=== PATIENT | female | born 2000 | race Caucasian/White ===

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

== ENCOUNTER 2018-08-10 07:20 | Inpatient (IN) | payer OTHER ==
[~2018-08-10] VITALS: Ht 160 cm; Wt 97.2 kg
[~2018-08-10 07:20] MED LIST: IBUP-1542 PO
[2018-08-10] MEDS ORDERED: ONDANSETRON 4 MG INJ IV STA (07:59)
[2018-08-10] MEDS ORDERED: SOD CHLORIDE 0.9% 1,000 ML IV STA (07:59)
[2018-08-10] MEDS ORDERED: morphine 2 MG INJ IV STA (07:59)
--- NOTE | 2018-08-10 08:21 | ERD ---
ER Documentation Chief Complaint Chief Complaint pt is bib self with c/o abd pain starting last night HPI This is a 17-year-old female with a nonsignificant past medical history presents ED with complaints of upper abdominal pain that started 1 week ago. Patient states that the pain comes and goes but is becoming more consistent over the past day. Patient describes the pain as a burning sensation and rates it at a 10 out of 10 pain. Pain rates to the back. Admits to multiple episodes of nonbilious nonbloody vomiting. Admits to decreased appetite. Pain is alleviated by drinking warm tea. Pain is aggravated by eating. Patient states that she has had similar pain off and on throughout the past year. Patient states that she was seen here 1 year ago for the same pain was diagnosed with cholecystitis and was kept in the hospital for 4 days but never had her gallbladder removed. Has not followed up with GI following dc from hospital one year ago. denies fever, chills, hematochezia, hemoptysis, hematemesis, diarrhe a, constipation, chest pain, shortness of breath, trouble breathing, dysuria, hematuria, vaginal pain, vaginal discharge and all other symptoms. ROS All systems reviewed and are negative except as per history of present illness. Medications Home Meds Active Scripts Ibuprofen* (Ibuprofen*) 600 Mg Tablet, 600 MG PO Q6H PRN for MODERATE PAIN LEVEL 4-6 for 1 Day, #20 TAB otc Prov:RAÚL QUINTEROS MD 09/09/17 Allergies Allergies: Coded Allergies: No Known Allergy (Unverified , 09/07/17) VERIFIED BY RN PMhx/Soc Hx Neurological Disorder: No Hx Respiratory Disorders: No Hx Cardiac Disorders: No Hx Psychiatric Problems: No Hx Alcohol Use: No Hx Substance Use: Yes (MARIJUANA) Hx Tobacco Use: No Smoking Status: Current some day smoker Physical Exam Vitals Vital Signs Date Temp Pulse Resp B/P (MAP) Pulse Ox O2 O2 Flow FiO2 Time Delivery Rate 08/10/18 98.3 94 18 147/65 98 07:23 (92) Physical Exam Physical Exam Vitals signs: Reviewed by me. General: Well developed, well nourished, in mild distress. Patient is awake and alert. Resting peacefully on stretcher Head: Normocephalic, atraumatic. Eyes: Normal conjunctiva, Pupils PERRLA, EOM intact grossly ENT: Pharynx is clear, Moist mucous membranes, external ears, nose and mouth normal Neck: Supple, no masses, lymphadenopathy or JVD Respiratory: Clear to auscultation bilaterally with no wheezing, rhonchi, rales, no distress Cardiovascular: RRR, no murmurs, rubs, or gallops Abdominal: Soft, nondistended, no peritoneal signs, no rigidity, no surgical abdomen, bowel sounds present all 4 quadrants, mild tenderness to palpation epigastric and right upper quadrant region, , nontender palpation all other areas, McBurney's point nontender, no rebound tenderness : Deferred MSK: No edema, no unilateral swelling, 5/5 strength Back: No midline tenderness. No flank tenderness Neurologic: Alert and oriented, moving all extremities, normal speech, no focal weakness, no cerebellar signs. Normal mentation Skin: warm and dry, No rash Psych: Normal mood Result Diagram: 08/10/1892008/10/18 0921 Results 24 hrs Laboratory Tests Test 08/10/18 08:13 08/10/18 08:20 08/10/18 09:21 POC Beta HCG, Qualitative NEGATIVE Urine Color YELLOW Urine Clarity SLIGHTLY CLOUDY Urine pH 8.0 Urine Specific [place] 1.023 Urine Ketones NEGATIVE mg/dL Urine Nitrite NEGATIVE mg/dL Urine Bilirubin NEGATIVE mg/dL Urine Urobilinogen NEGATIVE mg/dL Urine Leukocyte Esterase 1+ Bryanna/ul Urine Microscopic RBC 4 /HPF Urine Microscopic WBC 24 /HPF Urine Squamous Epithelial Cells FEW /HPF Urine Bacteria FEW /HPF Urine Mucus FEW /HPF Urine Hemoglobin NEGATIVE mg/dL Urine Glucose NEGATIVE mg/dL Urine Total Protein 1+ mg/dl White Blood Count 13.1 10^3/ul Red Blood Count 4.83 10^6/ul Hemoglobin 10.5 g/dl Hematocrit 35.0 % Mean Corpuscular Volume 72.5 fl Mean Corpuscular Hemoglobin 21.7 pg Mean Corpuscular 30.0 g/dl Hemoglobin Concent Red Cell Distribution Width 15.8 % Platelet Count 442 10^3/UL Mean Platelet Volume 10.9 fl Immature Granulocytes % 0.500 % Neutrophils % 90.2 % Lymphocytes % 7.0 % Monocytes % 2.2 % Eosinophils % 0.0 % Basophils % 0.1 % Nucleated Red Blood Cells % 0.0 /100WBC Immature Granulocytes # 0.060 10^3/ul Neutrophils # 11.8 10^3/ul Lymphocytes # 0.9 10^3/ul Monocytes # 0.3 10^3/ul Eosinophils # 0.0 10^3/ul Basophils # 0.0 10^3/ul Nucleated Red Blood Cells # 0.0 10^3/ul Sodium Level 139 mmol/L Potassium Level 4.4 mmol/L Chloride Level 102 mmol/L Carbon Dioxide Level 26 mmol/L Anion Gap 11 Blood Urea Nitrogen 9 mg/dl Creatinine 0.54 mg/dl Est Glomerular Filtrat > 60 mL/min Rate mL/min Glucose Level 129 mg/dl Calcium Level 9.9 mg/dl Total Bilirubin 0.5 mg/dl Direct Bilirubin 0.00 mg/dl Indirect Bilirubin 0.5 mg/dl Aspartate Amino 22 IU/L Transf (AST/SGOT) Alanine 7 IU/L Aminotransferase (ALT/SGPT) Alkaline Phosphatase 115 IU/L Total Protein 9.5 g/dl Albumin 4.8 g/dl Globulin 4.70 g/dl Albumin/Globulin Ratio 1.02 Lipase 34 U/L Current Medications Medications Dose Sig/June Start Time Status Last (Trade) Ordered Route PRN Stop Time Admin Dose Reason Admin Sodium 1,000 ml @ Q1H STAT 08/10/18 DC 08/10/18 Chloride 1,000 mls/hr IV 07:59 09:08 08/10/18 08:58 Morphine 4 mg ONCE STAT 08/10/18 DC 08/10/18 Sulfate IV 07:59 09:08 (morphine) 08/10/18 08:00 Ondansetron 4 mg ONCE STAT 08/10/18 DC 08/10/18 HCl (Zofran IV 07:59 09:08 Inj) 08/10/18 08:00 Piperacillin 100 ml @ ONCE ONCE 08/10/18 DC 08/10/18 Sod/ 200 mls/hr IVPB 09:30 09:55 Tazobactam 08/10/18 09:59 Sod Ondansetron 4 mg BRIDGE ORDER 08/10/18 HCl (Zofran PRN IV 10:00 Inj) NAUSEA/VOMITI 08/11/18 09:59 NG 650 mg ER BRIDGE 08/10/18 Acetaminophen PRN PO 10:00 (Tylenol .MILD PAIN 08/11/18 09:59 Tab) 1-3 OR TEMP Procedures/MDM EKG, MONITORS, & DIAGNOSTIC IMAGING: [facility] [address] [address] Radiology Main Line: [phone] DIAGNOSTIC IMAGING REPORT Patient: JUNIOR GAUTHIER : 2000 Age: 17 Sex: F MR #: [id number] DOS: 08/10/18 0759 Ordering MD: MIA AGUIAR PA-C Location: [facility] Room/Bed: PROCEDURE: US Abdomen. CLINICAL INDICATION: Right upper quadrant abdominal pain TECHNIQUE: Dodd scale and color Doppler imaging of the right upper quadrant COMPARISON: MR 09/08/2017 FINDINGS: The liver is homogeneous in echotexture and no focal liver lesions are seen. Hepatic span measured at 15.9 cm, within normal limits. There is appropriately directed flow within the main portal vein The gallbladder is again distended, there is again a stone present in the gallbladder neck, where it using a mobile, the size of the stone measures 2.2 cm on image 38. Gallbladder wall thickness is upper limits of normal at 3.0 mm. No pericholecystic fluid. Positive sonographic Vogel's sign was reported. No intra or extrahepatic biliary dilatation is seen. The common bile duct measures 3.4 mm in maximal dimension. The visualized pancreas is uniform; the proximal and distal pancreas are partially obscured by upper abdominal bowel gas. The right kidney measures 9.7 cm. No hydronephrosis or renal calculi are seen. No ascites is seen. IMPRESSION: Cholelithiasis with immobile large 2.2 cm stone lodged within the gallbladder neck. The gallbladder is distended with borderline wall thickening (3 mm) and positive sonographic Vogel's sign suspect for the presence of acute cholecystitis. No biliary ductal dilatation. Results were called to the ordering clinician Mia Aguiar at time of dictation 0902 hours. RPTAT: [facility]SAF Physician Kristina Date Time Electronically viewed and signed by Physician Kristina on 08/10/2018 09:03 RF/ CC: MIA AGUIAR PA-C [id number] LAB INTERPRETATION: CBC remarkable for an elevated white blood cell count of 13.1, hemoglobin 10.5, hematocrit 35, Chemistry shows no evidence of significant electrolyte abnormalities or renal insufficiency Liver function test shows no evidence of acute biliary or hepatic dysfunction Urine negative Lipase shows no evidence of acute pancreatitis Urinalysis remarkable for 1+ leukocyte esterase, 24 WBC, ER COURSE: The patient was given IV normal saline, morphine, Zofran. The medication was well tolerated and the patient reports improvement in symptoms. The patient was stable throughout ED course. I kept the patient and/or family informed of laboratory and diagnostic imaging results throughout the emergency room course. The patient was promptly evaluated and a treatment plan was devised based on H&P and other data. This plan was discussed with the patient who agreed and had no further questions or concerns prior to discharge. MEDICAL DECISION MAKING: This is a 17-year-old female presents ED with complaints of upper abdominal pain that started last night. Ultrasound of the gallbladder shows cholelithiasis with a stone lodged in the gallbladder wall neck the gallbladder is also distended with a positive sonographic Vogel sign. This is likely an acute cholecystitis. Patient was also admitted to the hospital 1 year ago for similar symptoms and was diagnosed with acute cholecystitis but did not have her gallbladder removed at this time. Patient will be admitted to hospital today for for treatment of cholecystitis. Discussed findings and my overseeing physician Dr. Harden,who has evaluated patient at bedside, and will be facilitating admission of patient in the hospital Disclaimer: Inadvertent spelling and grammatical errors are likely due to EHR/dictation software use and do not reflect on the overall quality of patient care. Also, please note that the electronic time recorded on this note does not necessarily reflect the actual time of the patient encounter. 0935: Attending note Patient was seen independently alongside the PA. Briefly, this is a 17-year-old that began having right upper quadrant abdominal pain last night consistent with her previous cholecystitis. Diagnostic work-up confirms recurrent acute cholecystitis. She will be admitted for surgical consultation, IV antibiotics. She remains hemodynamically stable in the emergency department. Departure Diagnosis: Primary Impression: Acute cholecystitis Condition: Stable MIA AGUIAR PA-C August 10, 2018 08:21 SAVANNAH HARDEN August 10, 2018 09:39
[2018-08-10] MEDS ORDERED: PIPER-TAZO 3.375 GM IV (PMX) 100 ML IVPB ONE (09:30)
[2018-08-10] MEDS ORDERED: ACETAMINOPHEN 325 MG TAB PO PRN (10:00)
[2018-08-10] MEDS ORDERED: ONDANSETRON 4 MG INJ IV PRN ×2 (10:00→11:00)
--- NOTE | 2018-08-10 10:37 | HP ---
Date/Time of Note Date/Time of Note DATE: 08/10/18 TIME: 10:32 Assessment/Plan VTE Prophylaxis SCD applied (from Nsg): Yes Pharmacological prophylaxis: NA/contraindicated Pharm contraindication: low risk/ambulating Lines/Catheters IV Catheter Type (from Nrsg): Peripheral IV Assessment/Plan Hospital Course SUBJECTIVE: Lying in bed, complaining of right upper quadrant abdominal pain 6 out of 10. Having mild nausea without vomiting. OBJECTIVE: Vital signs-see below PHYSICAL EXAM: Constitutional: Adequately built,not in acute distress. HEENT: Head atraumatic and normocephalic. Eyes: Extraocular muscles intact. Anicteric sclerae. Pupils equal bilaterally, reactive to light. NECK: Supple without lymph node. CHEST: Clear and good breath sounds equally. No wheezing. No rhonchi. HEART: S1, S2. Regular rate and rhythm. ABDOMEN:+RUQ Tenderness. No rebound tenderness. Bowel sounds were present. EXTREMITIES: No cyanosis, clubbing or edema. NEUROLOGIC: Alert and oriented x3. No focal deficit. No sensory deficit. PSYCHOSOCIAL: No signs of depression. INTEGUMENTARY: No open wounds. ASSESSMENT AND PLAN:17 yo F w/ history of gallbladder stone/cholecystitis in the past, here with 1 week duration of RUQ abdominal pain associated with multiple episodes of nonbilious/nonbloody vomiting.. Cholelithiasis with acute cholecystitis -Surgical consult with Dr. Bernal -N.p.o., IV fluids, IV antibiotics Obesity with a BMI 38.2 -Weight loss advised. DVT prophylaxis: SCDs Rest of the management depend on hospital course. Approximately 60 m spent on this history and physical. Patient is seen in collaboration with Dr. Byrnes Result Diagram: 08/10/1892008/10/18920 Results 24hrs Laboratory Tests Test 08/10/18 08:13 08/10/18 08:20 08/10/18 09:21 POC Beta HCG, Qualitative NEGATIVE Urine Color YELLOW Urine Clarity SLIGHTLY CLOUDY A Urine pH 8.0 Urine Specific [place] 1.023 Urine Ketones NEGATIVE Urine Nitrite NEGATIVE Urine Bilirubin NEGATIVE Urine Urobilinogen NEGATIVE Urine Leukocyte Esterase 1+ H Urine Microscopic RBC 4 Urine Microscopic WBC 24 H Urine Squamous FEW Epithelial Cells Urine Bacteria FEW A Urine Mucus FEW A Urine Hemoglobin NEGATIVE Urine Glucose NEGATIVE Urine Total Protein 1+ H White Blood Count 13.1 #H Red Blood Count 4.83 Hemoglobin 10.5 L Hematocrit 35.0 L Mean Corpuscular Volume 72.5 Mean Corpuscular Hemoglobin 21.7 L Mean Corpuscular 30.0 L Hemoglobin Concent Red Cell Distribution Width 15.8 H Platelet Count 442 #H Mean Platelet Volume 10.9 H Immature Granulocytes % 0.500 H Neutrophils % 90.2 H Lymphocytes % 7.0 L Monocytes % 2.2 Eosinophils % 0.0 Basophils % 0.1 Nucleated Red Blood Cells % 0.0 Immature Granulocytes # 0.060 H Neutrophils # 11.8 H Lymphocytes # 0.9 Monocytes # 0.3 Eosinophils # 0.0 Basophils # 0.0 Nucleated Red Blood Cells # 0.0 Sodium Level 139 Potassium Level 4.4 Chloride Level 102 Carbon Dioxide Level 26 Anion Gap 11 Blood Urea Nitrogen 9 Creatinine 0.54 Est Glomerular Filtrat > 60 Rate mL/min Glucose Level 129 Calcium Level 9.9 Total Bilirubin 0.5 Direct Bilirubin 0.00 Indirect Bilirubin 0.5 Aspartate Amino 22 Transf (AST/SGOT) Alanine 7 L Aminotransferase (ALT/SGPT) Alkaline Phosphatase 115 Total Protein 9.5 H Albumin 4.8 Globulin 4.70 H Albumin/Globulin Ratio 1.02 Lipase 34 HPI/ROS Admit Date/Time Admit Date/Time Hx of Present Illness This is a 17-year-old female with a known history of cholelithiasis with gallbladder neck stone,episode of mild cholecystitis in August 2017, presented to the emergency room with worsening right upper abdominal pain associated with multiple episodes of nonbilious/nonbloody vomiting started a week ago. Patient denied fever, chills, diarrhea, constipation, upper/lower GI bleed, chest pain, palpitation, shortness of breath, dizziness, headache, or other constitutional symptoms. In the emergency room, patient was noted with a white count 13,100, platelet 442,000, UA with leukocyte esterase/WBC, gallbladder ultrasound with Cholelithiasis with immobile large 2.2 cm stone lodged within the gallbladder neck. The gallbladder is distended with borderline wall thickening (3 mm) and positive sonographic Vogel's sign suspect for the presence of acute cholecystitis. Stable vital signs. She was given Zosyn, Zofran, morphine in the emergency room and a surgical consult with Dr. Walton was called. ROS A 12 point review of system was assessed and is negative other than what is men tioned in the HPI. PMH/Family/Social Past Medical History See HPI Medications Current Medications Ondansetron HCl (Zofran Inj) 4 mg BRIDGE ORDER PRN IV NAUSEA/VOMITING; Start 08/10/18 at 10:00; Stop 08/11/18 at 09:59 Acetaminophen (Tylenol Tab) 650 mg ER BRIDGE PRN PO .MILD PAIN 1-3 OR TEMP; Start 08/10/18 at 10:00; Stop 08/11/18 at 09:59 Coded Allergies: No Known Allergy (Unverified , 09/07/17) VERIFIED BY RN Past Surgical History No surgical history Past Surgical Hx: no surgical history Family History Significant Family History: no pertinent family hx Social History Smoking Status: Current some day smoker Exam/Review of Systems Vital Signs Vitals Vital Signs Date Temp Pulse Resp B/P (MAP) Pulse Ox O2 O2 Flow FiO2 Time Delivery Rate 08/10/18 98.3 94 18 147/65 98 07:23 (92) KATIE MENESES NP August 10, 2018 10:37
[2018-08-10] MEDS ORDERED: NACL 0.9% 3 ML SYG IV SCH (11:00)
[2018-08-10] MEDS ORDERED: ACETAMINOPHEN 650 MG SUPP PR PRN (11:00)
--- NOTE | 2018-08-10 11:07 | PREAC ---
Date/Time of Note Date/Time of Note DATE: 08/10/18 TIME: 10:52 Anesthesia Eval and Record Evaluation Time Pre-Procedure Interview DATE: 08/10/18 TIME: 10:52 Age 17 Sex female NPO: 8 hrs Preoperative diagnosis cholelithiasis Planned procedure laparoscopic possible open cholecystectomy Past Medical History Past Medical History: Includes Pulm: Other GI: Obesity (bmi 38) Surgery & Anesthesia Issues No known issue (never had anesthesia ) Meds Anticoagulation: No Beta Merlyn within 24 hr: No Reason Beta Merlyn not given: Pt. not on B-Merlyn Active Scripts Ibuprofen* (Ibuprofen*) 600 Mg Tablet, 600 MG PO Q6H PRN for MODERATE PAIN LEVEL 4-6 for 1 Day, #20 TAB otc Prov:RAÚL QUINTEROS MD 09/09/17 Current Medications Ondansetron HCl (Zofran Inj) 4 mg BRIDGE ORDER PRN IV NAUSEA/VOMITING; Start 08/10/18 at 10:00; Stop 08/11/18 at 09:59 Acetaminophen (Tylenol Tab) 650 mg ER BRIDGE PRN PO .MILD PAIN 1-3 OR TEMP; Start 08/10/18 at 10:00; Stop 08/11/18 at 09:59 IV Flush (NS 3 ml) 3 ml PER PROTOCOL IV ; Start 08/10/18 at 11:00; Status UNV Ondansetron HCl (Zofran Inj) 4 mg Q6H PRN IV NAUSEA/VOMITING; Start 08/10/18 at 11:00; Status UNV Acetaminophen (Tylenol Supp) 650 mg Q6H PRN [place] .PAIN 1-3 OR TEMP; Start 08/10/18 at 11:00; Status UNV Morphine Sulfate (morphine) 2 mg Q4H PRN IV .SEVERE PAIN 7-10; Start 08/10/18 at 11:00; Status UNV Piperacillin Sod/ Tazobactam Sod 100 ml @ 200 mls/hr Q6 IVPB ; Start 08/10/18 at 12:00; Status UNV Meds reviewed: Yes (none ) Allergies Coded Allergies: No Known Allergy (Unverified , 09/07/17) VERIFIED BY RN Allergies Reviewed: Yes Labs/Studies Labs Reviewed: Reviewed by anesthesiologist Result Diagram: 08/10/1821 08/10/1821 Laboratory Tests 08/10/18 09:21 test: Negative Pre-procedure Exam Last vitals Vital Signs Date Temp Pulse Resp B/P (MAP) Pulse Ox O2 O2 Flow FiO2 Time Delivery Rate 08/10/18 98.3 94 18 147/65 98 07:23 (92) Airway: Adequate mouth opening, Adequate thyromental dist Mallampati: Mallampati II Teeth: Normal Lung: Normal Heart: Normal ASA Physical Status ASA physical status: 2 Emergency: E Planned Anesthetic General/MAC: ETT Nerve block: TAP (bilateral) Planned Pain Management Single shot nerve block, Parenteral pain med, Local by surgeon Pre-operative Attestations Prior to commencing anesthesia and surgery, the patient was re-evaluated, there was verification of: *The patient's identity *The results of appropriate recent lab work and preoperative vital signs *The above evaluation not changing prior to induction *Anesthetic plan, risk benefits, alternative and complications discussed with patient/family; questions answered; patient/family understands, accepts and wishes to proceed. BRANDIE HENDERSON August 10, 2018 11:03
[2018-08-10 12:53] VITALS: Ht 160 cm; Wt 97.2 kg
[2018-08-10] MEDS: morphine 2 MG INJ IV PRN ×2 (13:24→19:59)
[2018-08-10 14:30] VITALS: BP 112/53; PULSE 64; RESP 19
--- NOTE | 2018-08-10 15:21 | CONS ---
Assessment/Plan Assessment/Plan Assessment/Plan (Daily) Acute cholecystitis Paz: Laparoscopic cholecystectomy, possible open. I have discussed the procedur e, indications, alternatives and risks in detail with the patient and her parents who have an excellent understanding of the nature of her situation and agreed to the proposed plan of therapy as outlined. Consultation Date/Type/Reason Admit Date/Time Date of Consultation: August 10, 2018 Type of Consult General surgery Reason for Consultation Acute cholecystitis Date/Time of Note DATE: 08/10/18 TIME: 15:18 Hx of Present Illness Patient is an otherwise healthy 17-year-old female with a known history of gallbladder disease. She now presents with severe midepigastric and right upper quadrant abdominal pain. Abdominal ultrasound shows a stone impacted in the neck of the gallbladder and findings compatible with acute cholecystitis. She has had no fevers, chills or jaundice. Her LFTs are normal. Review of systems HEENT: Unremarkable Pulmonary: No history of asthma, pneumonia or shortness of breath Cardiac: No history of chest pain, VT or arrhythmia GI: As in the HPI : Asymptomatic Past Medical History Medical History: no pertinent history Home Meds Active Scripts Ibuprofen* (Ibuprofen*) 600 Mg Tablet, 600 MG PO Q6H PRN for MODERATE PAIN LEVEL 4-6 for 1 Day, #20 TAB otc Prov:RAÚL QUINTEROS MD 09/09/17 Medications Current Medications IV Flush (NS 3 ml) 3 ml PER PROTOCOL IV ; Start 08/10/18 at 11:00 Ondansetron HCl (Zofran Inj) 4 mg Q6H PRN IV NAUSEA/VOMITING Last administered on 08/10/18at 13:24; Admin Dose 4 MG; Start 08/10/18 at 11:00 Acetaminophen (Tylenol Supp) 650 mg Q6H PRN [place] .PAIN 1-3 OR TEMP; Start 08/10/18 at 11:00 Morphine Sulfate (morphine) 2 mg Q4H PRN IV .SEVERE PAIN 7-10 Last administered on 08/10/18at 13:24; Admin Dose 2 MG; Start 08/10/18 at 11:00 Piperacillin Sod/ Tazobactam Sod 100 ml @ 200 mls/hr Q6 IVPB ; Start 08/10/18 at 16:00 Allergies: Coded Allergies: No Known Allergy (Unverified , 09/07/17) VERIFIED BY RN Past Surgical History Past Surgical Hx: no surgical history Family History Significant Family History: no pertinent family hx Social History Smoking Status: Never smoker Exam/Review of Systems Exam Vitals Vital Signs Date Temp Pulse Resp B/P (MAP) Pulse Ox O2 O2 Flow FiO2 Time Delivery Rate 08/10/18 98.5 64 19 112/53 99 14:30 (72) 08/10/18 Room Air 12:24 Constitutional: alert, oriented Psych: no complaints Head: normocephalic Eyes: nl conjunctiva Neck: supple Respiratory: clear to auscultation Gastrointestinal: tender (Tender right upper quadrant. No masses) Musculoskeletal: nl extremities to inspection Neurological: LINE CREWMAN II-XII intact Skin: nl turgor Results Result Diagram: 08/10/1892008/10/18920 Results 24hrs Laboratory Tests Test 08/10/18 08:13 08/10/18 08:20 08/10/18 09:21 POC Beta HCG, Qualitative NEGATIVE Urine Color YELLOW Urine Clarity SLIGHTLY CLOUDY A Urine pH 8.0 Urine Specific [place] 1.023 Urine Ketones NEGATIVE Urine Nitrite NEGATIVE Urine Bilirubin NEGATIVE Urine Urobilinogen NEGATIVE Urine Leukocyte Esterase 1+ H Urine Microscopic RBC 4 Urine Microscopic WBC 24 H Urine Squamous FEW Epithelial Cells Urine Bacteria FEW A Urine Mucus FEW A Urine Hemoglobin NEGATIVE Urine Glucose NEGATIVE Urine Total Protein 1+ H White Blood Count 13.1 #H Red Blood Count 4.83 Hemoglobin 10.5 L Hematocrit 35.0 L Mean Corpuscular Volume 72.5 Mean Corpuscular Hemoglobin 21.7 L Mean Corpuscular 30.0 L Hemoglobin Concent Red Cell Distribution Width 15.8 H Platelet Count 442 #H Mean Platelet Volume 10.9 H Immature Granulocytes % 0.500 H Neutrophils % 90.2 H Lymphocytes % 7.0 L Monocytes % 2.2 Eosinophils % 0.0 Basophils % 0.1 Nucleated Red Blood Cells % 0.0 Immature Granulocytes # 0.060 H Neutrophils # 11.8 H Lymphocytes # 0.9 Monocytes # 0.3 Eosinophils # 0.0 Basophils # 0.0 Nucleated Red Blood Cells # 0.0 Sodium Level 139 Potassium Level 4.4 Chloride Level 102 Carbon Dioxide Level 26 Anion Gap 11 Blood Urea Nitrogen 9 Creatinine 0.54 Est Glomerular Filtrat > 60 Rate mL/min Glucose Level 129 Calcium Level 9.9 Total Bilirubin 0.5 Direct Bilirubin 0.00 Indirect Bilirubin 0.5 Aspartate Amino 22 Transf (AST/SGOT) Alanine 7 L Aminotransferase (ALT/SGPT) Alkaline Phosphatase 115 Total Protein 9.5 H Albumin 4.8 Globulin 4.70 H Albumin/Globulin Ratio 1.02 Lipase 34 Medications Medication Current Medications IV Flush (NS 3 ml) 3 ml PER PROTOCOL IV ; Start 08/10/18 at 11:00 Ondansetron HCl (Zofran Inj) 4 mg Q6H PRN IV NAUSEA/VOMITING Last administered on 08/10/18at 13:24; Admin Dose 4 MG; Start 08/10/18 at 11:00 Acetaminophen (Tylenol Supp) 650 mg Q6H PRN [place] .PAIN 1-3 OR TEMP; Start 08/10/18 at 11:00 Morphine Sulfate (morphine) 2 mg Q4H PRN IV .SEVERE PAIN 7-10 Last administered on 08/10/18at 13:24; Admin Dose 2 MG; Start 08/10/18 at 11:00 Piperacillin Sod/ Tazobactam Sod 100 ml @ 200 mls/hr Q6 IVPB ; Start 08/10/18 at 16:00 LO LAURENT MD August 10, 2018 15:21
[2018-08-10] MEDS: PIPER-TAZO 3.375 GM IV (PMX) 100 ML IVPB SCH ×2 (15:49→21:59)
[2018-08-10 20:00] VITALS: BP 112/58; PULSE 60; RESP 18
[2018-08-11] VITALS (20 sets, daily range): BP systolic 105–141; BP diastolic 54–84; PULSE 60–99; RESP 10–18
[2018-08-11] MEDS: PIPER-TAZO 3.375 GM IV (PMX) 100 ML IVPB SCH ×4 (02:15→17:59)
[2018-08-11] MEDS ORDERED: BUPIVACAINE 0.25%/EPI (SDV) 30 ML INJ ONE (07:00)
[2018-08-11] MEDS ORDERED: DESFLURANE 15 MIN ONE (07:00)
[2018-08-11] MEDS ORDERED: ROCURONIUM 50 MG INJ ONE (07:06)
[2018-08-11] MEDS ORDERED: SUCCINYLCHOLINE CHLORIDE 100 MG/5 ML SYG IV ONE (07:06)
[2018-08-11] MEDS ORDERED: MIDAZOLAM 1 MG/ML 2 ML INJ ONE (07:06)
[2018-08-11] MEDS ORDERED: PROPOFOL 20 ML ONE (07:06)
[2018-08-11] MEDS ORDERED: ONDANSETRON 4 MG INJ ONE (07:07)
[2018-08-11] MEDS ORDERED: KETOROLAC 30 MG INJ ONE (07:08)
--- NOTE | 2018-08-11 07:17 | PREAC ---
Date/Time of Note Date/Time of Note DATE: 08/11/18 TIME: 07:15 Anesthesia Eval and Record Evaluation Time Pre-Procedure Interview DATE: 08/11/18 TIME: 07:15 Age 17 Sex female NPO: 8 hrs Preoperative diagnosis Cholelithiasis Planned procedure Lap. Cholecystectomy Past Medical History Past Medical History: Includes GI: Obesity Surgery & Anesthesia Issues No known issue Meds Anticoagulation: No Beta Melryn within 24 hr: No Reason Beta Merlyn not given: Pt. not on B-Merlyn Active Scripts Ibuprofen* (Ibuprofen*) 600 Mg Tablet, 600 MG PO Q6H PRN for MODERATE PAIN LEVEL 4-6 for 1 Day, #20 TAB otc Prov:RAÚL QUINTEROS MD 09/09/17 Current Medications IV Flush (NS 3 ml) 3 ml PER PROTOCOL IV ; Start 08/10/18 at 11:00 Ondansetron HCl (Zofran Inj) 4 mg Q6H PRN IV NAUSEA/VOMITING Last administered on 08/10/18at 13:24; Admin Dose 4 MG; Start 08/10/18 at 11:00 Acetaminophen (Tylenol Supp) 650 mg Q6H PRN [place] .PAIN 1-3 OR TEMP; Start 08/10/18 at 11:00 Morphine Sulfate (morphine) 2 mg Q4H PRN IV .SEVERE PAIN 7-10 Last administered on 08/10/18at 19:59; Admin Dose 2 MG; Start 08/10/18 at 11:00 Piperacillin Sod/ Tazobactam Sod 100 ml @ 200 mls/hr Q6 IVPB Last administered on 08/11/18at 02:15; Admin Dose 200 MLS/HR; Start 08/10/18 at 16:00 Meds reviewed: Yes Allergies Coded Allergies: No Known Allergy (Unverified , 09/07/17) VERIFIED BY RN Allergies Reviewed: Yes Labs/Studies Labs Reviewed: Reviewed by anesthesiologist Result Diagram: 08/11/18 0547 08/11/18 0547 Laboratory Tests 08/11/18 05:47 test: Negative Pre-procedure Exam Last vitals Vital Signs Date Temp Pulse Resp B/P (MAP) Pulse Ox O2 O2 Flow FiO2 Time Delivery Rate 08/11/18 98.3 61 18 105/58 99 01:41 (74) 08/10/18 Room Air 12:24 Airway: Adequate mouth opening Mallampati: Mallampati III Teeth: Normal Lung: Normal Heart: Normal ASA Physical Status ASA physical status: 2 Emergency: None Planned Anesthetic General/MAC: ETT Pre-operative Attestations Prior to commencing anesthesia and surgery, the patient was re-evaluated, there was verification of: *The patient's identity *The results of appropriate recent lab work and preoperative vital signs *The above evaluation not changing prior to induction *Anesthetic plan, risk benefits, alternative and complications discussed with patient/family; questions answered; patient/family understands, accepts and wishes to proceed. EDNA LESLIE MD August 11, 2018 07:17
[2018-08-11] MEDS ORDERED: CEFAZOLIN 1 GM INJ ONE (07:36)
[2018-08-11] MEDS ORDERED: NEOSTIGMINE 3 MG/3 ML SYRINGE ONE (08:31)
[2018-08-11] MEDS ORDERED: GLYCOPYRROLATE 0.4 MG INJ ONE (08:31)
--- NOTE | 2018-08-11 08:55 | PAC ---
Date/Time of Note Date/Time of Note DATE: 08/11/18 TIME: 08:55 Post-Anesthesia Notes Post-Anesthesia Note Last documented vital signs Vital Signs Date Temp Pulse Resp B/P (MAP) Pulse Ox O2 O2 Flow FiO2 Time Delivery Rate 08/11/18 98.3 61 18 105/58 99 01:41 (74) 08/10/18 Room Air 12:24 Activity: WNL Respiratory function: WNL Cardiovascular function: WNL Mental status: Baseline Pain reasonably controlled: Yes Hydration appropriate: Yes Nausea/Vomiting absent: Yes EDNA LESLIE MD August 11, 2018 08:55
--- NOTE | 2018-08-11 08:57 | OPR ---
Date/Time of Note Date/Time of Note DATE: 08/11/18 TIME: 08:47 Operative Report Procedure Date: August 11, 2018 Preoperative Diagnosis Acute cholecystitis Postoperative Diagnosis Acute cholecystitis Operation/Procedure Performed 1. Laparoscopic cholecystectomy 2. Placement of drain Surgeon Lo Laurent MD Heel Nail Rasper None Anesthesia Type: general Anesthesiologist: EDNA LESLIE MD Estimated Blood Loss: minimal Transfusion none Specimen Gallbladder Grafts/Implants none Tubes/Drains #19 Round Alex drain Complications none Pt Condition Post Procedure: stable Disposition: PACU Indications Acute cholecystitis Procedure Description After satisfactory general endotracheal anesthesia was achieved, the abdomen was prepped and draped in usual fashion. The abdomen was insufflated with carbon dioxide through an umbilical Veress needle to 15 mmHg pressure. The Veress needle was removed and the umbilical incision extended to 5 mm through which a 5 mm trocar was placed a 5 mm 0 degree lens was placed. Laparoscopy showed an acutely inflamed gallbladder. Under direct visualization a 12 mm epigastric trocar was placed as well as 2 more 5 mm right lateral abdominal trochars. The dome of the gallbladder was grasped and retracted superiorly. Omental adhesions to the gallbladder were taken down with careful blunt and electrocautery dissection. The hepatoduodenal ligament was carefully dissected between the gallbladder and the well-visualized prerna hepatis. The cystic duct was then dissected circumferentially and triply hemoclipped and divided high at the junction of the gallbladder and the cystic duct. The cystic artery was identified immediately posteriorly this was triply hemoclipped and divided between clips. The gallbladder was then dissected from below using electrocautery dissection and placed fully intact into an Endo Catch removed via the epigastric route. Hemostasis of the liver bed was completed with electrocautery. Because of the inflammation in the right upper quadrant, it was elected to place a drain. A #19 round Alex drain was placed draining the right subhepatic space and gallbladder fossa and exiting through the right lateral port site where it was secured to the skin with 2-0 silk. The abdomen was then desufflated and the trochars were removed. The fascia of the epigastrium was closed with a single suture of 0 Vicryl. The skin punctures were infiltrated with 30 cc of 0.25% Marcaine with epinephrine. Sponge and needle counts were reported as correct x2. LO LAURENT MD August 11, 2018 08:57
[2018-08-11] MEDS ORDERED: morphine 2 MG INJ IV PRN (09:00)
[2018-08-11] MEDS ORDERED: OXYCODONE/ACETAMINOPHEN (5/325) TAB PO PRN ×2 (09:00)
[2018-08-11] MEDS ORDERED: ONDANSETRON 4 MG INJ IV PRN ×2 (09:00)
[2018-08-11] MEDS: HYDROmorphONE 1 MG/5 ML IV SYRINGE IV PRN ×3 (09:06→09:35)
[2018-08-11] MEDS: morphine 2 MG INJ IV PRN ×2 (12:54→21:58)
--- NOTE | 2018-08-11 13:33 | PN ---
Date/Time of Note Date/Time of Note DATE: 08/11/18 TIME: 13:32 Assessment/Plan VTE Prophylaxis Risk score (from Nsg)>0 risk: 1 SCD applied (from Nsg): Yes Pharmacological prophylaxis: NA/contraindicated Pharm contraindication: low risk/ambulating Lines/Catheters IV Catheter Type (from Nrsg): Peripheral IV Urinary Cath still in place: No Assessment/Plan Hospital Course SUBJECTIVE: Complains of incisional pain. Complains of left upper extremity edema. OBJECTIVE: Physical Exam General: Obese,17 year-old female lying in bed in no apparent distress. HEENT: Normocephalic, atraumatic. Eyes: Anicteric sclerae, conjunctivae clear. ENT: Nasal septum midline, oral mucosa moist. Neck supple, no JVD noticed. Respiratory: Bilaterally clear breath sounds. No use of accessory muscles of respiration. No adventitious breath sounds. Cardiovascular: S1, S2 heard. Regular rate and rhythm. Abdomen: PAMELA drain in place. Dressings over laparoscopic incision sites. Genitourinary: Deferred. Extremities: No cyanosis, no clubbing. Peripheral pulses palpable. Left upper extremity edema. Neurologic: Cranial nerves II through XII grossly intact. The patient is awake, alert, and oriented. Skin: Normal skin turgor. No skin rashes. Labs & Vitals per chart ASSESSMENT & PLAN 17-year-old female with comorbidities including cholelithiasis and obesity who presented to the emergency room with chief complaint of abdominal pain associa js with multiple episodes of nausea and vomiting, who was admitted to inpatient setting for further treatment and evaluation. 1. Acute cholecystitis. -Status post laparoscopic cholecystectomy and placement of a drain on 08/11/2018. -Advance diet as tolerated. -Encourage frequent ambulation and use of incentive spirometry. -Continue pain control. 2. Obesity. -BMI 38 kg/m. -Weight reduction advised. 3. Prediabetes -Hemoglobin A1c 5.9. -Weight reduction advised. 4. Fluids, electrolytes, and nutrition. -Clear liquid diet. -Advance as tolerated. 5. DVT prophylaxis. -Bilateral SCDs. -Ambulation. 6. Plan. -Continue pain control. -Encourage frequent ambulation and use of incentive spirometry. -Await surgical clearance before discharging the patient home. The patient was seen in collaboration with Dr. Duarte. Result Diagram: 08/11/18 0547 08/11/18 0547 Results 24hrs Laboratory Tests Test 08/11/18 05:47 White Blood Count 8.7 # Red Blood Count 4.59 Hemoglobin 9.8 L Hematocrit 33.5 L Mean Corpuscular Volume 73.0 Mean Corpuscular Hemoglobin 21.4 L Mean Corpuscular Hemoglobin Concent 29.3 L Red Cell Distribution Width 15.9 H Platelet Count 437 H Mean Platelet Volume 11.3 H Immature Granulocytes % 0.300 Neutrophils % 63.1 Lymphocytes % 27.5 Monocytes % 7.7 Eosinophils % 1.2 Basophils % 0.2 Nucleated Red Blood Cells % 0.0 Immature Granulocytes # 0.030 Neutrophils # 5.5 Lymphocytes # 2.4 Monocytes # 0.7 Eosinophils # 0.1 Basophils # 0.0 Nucleated Red Blood Cells # 0.0 Sodium Level 142 Potassium Level 3.5 Chloride Level 104 Carbon Dioxide Level 27 Anion Gap 11 Blood Urea Nitrogen 9 Creatinine 0.66 Est Glomerular Filtrat Rate mL/min > 60 Glucose Level 100 Hemoglobin A1c 5.9 Calcium Level 9.0 Phosphorus Level 4.9 Magnesium Level 2.1 Total Bilirubin 0.9 Direct Bilirubin 0.00 Indirect Bilirubin 0.9 Aspartate Amino Transf (AST/SGOT) 20 Alanine Aminotransferase (ALT/SGPT) 14 Alkaline Phosphatase 100 Total Protein 8.3 H Albumin 4.0 Globulin 4.30 H Albumin/Globulin Ratio 0.93 Triglycerides Level 137 Cholesterol Level 122 LDL Cholesterol, Calculated 60 HDL Cholesterol 35 Cholesterol/HDL Ratio 3.4 Exam/Review of Systems Exam Vitals Vital Signs Date Temp Pulse Resp B/P (MAP) Pulse Ox O2 O2 Flow FiO2 Time Delivery Rate 08/11/18 98.4 99 16 141/84 98 Room Air 10:34 (103) Intake and Output 08/10/18 08/10/18 08/11/18 1515:00 23:00 07:00 IntakeIntake Total 1100 ml 200 ml 100 ml OutputOutput Total 2 ml BalanceBalance 1100 ml 200 ml 98 ml Results Results 24hrs Laboratory Tests Test 08/11/18 05:47 White Blood Count 8.7 # Red Blood Count 4.59 Hemoglobin 9.8 L Hematocrit 33.5 L Mean Corpuscular Volume 73.0 Mean Corpuscular Hemoglobin 21.4 L Mean Corpuscular Hemoglobin Concent 29.3 L Red Cell Distribution Width 15.9 H Platelet Count 437 H Mean Platelet Volume 11.3 H Immature Granulocytes % 0.300 Neutrophils % 63.1 Lymphocytes % 27.5 Monocytes % 7.7 Eosinophils % 1.2 Basophils % 0.2 Nucleated Red Blood Cells % 0.0 Immature Granulocytes # 0.030 Neutrophils # 5.5 Lymphocytes # 2.4 Monocytes # 0.7 Eosinophils # 0.1 Basophils # 0.0 Nucleated Red Blood Cells # 0.0 Sodium Level 142 Potassium Level 3.5 Chloride Level 104 Carbon Dioxide Level 27 Anion Gap 11 Blood Urea Nitrogen 9 Creatinine 0.66 Est Glomerular Filtrat Rate mL/min > 60 Glucose Level 100 Hemoglobin A1c 5.9 Calcium Level 9.0 Phosphorus Level 4.9 Magnesium Level 2.1 Total Bilirubin 0.9 Direct Bilirubin 0.00 Indirect Bilirubin 0.9 Aspartate Amino Transf (AST/SGOT) 20 Alanine Aminotransferase (ALT/SGPT) 14 Alkaline Phosphatase 100 Total Protein 8.3 H Albumin 4.0 Globulin 4.30 H Albumin/Globulin Ratio 0.93 Triglycerides Level 137 Cholesterol Level 122 LDL Cholesterol, Calculated 60 HDL Cholesterol 35 Cholesterol/HDL Ratio 3.4 Medications Medication Current Medications IV Flush (NS 3 ml) 3 ml PER PROTOCOL IV ; Start 08/10/18 at 11:00 Acetaminophen (Tylenol Supp) 650 mg Q6H PRN [place] .PAIN 1-3 OR TEMP; Start 08/10/18 at 11:00 Morphine Sulfate (morphine) 2 mg Q4H PRN IV .SEVERE PAIN 7-10 Last administered on 08/11/18at 12:54; Admin Dose 2 MG; Start 08/10/18 at 11:00 Piperacillin Sod/ Tazobactam Sod 100 ml @ 200 mls/hr Q6 IVPB Last administered on 08/11/18at 12:52; Admin Dose 200 MLS/HR; Start 08/10/18 at 16:00 Oxycodone/ Acetaminophen (Percocet (5/ 325)) 1 tab Q4H PRN PO .MILD PAIN (1-3); Start 08/11/18 at 09:00 Oxycodone/ Acetaminophen (Percocet (5/ 325)) 2 tab Q4H PRN PO .MODERATE PAIN (4-6) Last administered on 08/11/18at 10:32; Admin Dose 2 TAB; Start 08/11/18 at 09:00 Ondansetron HCl (Zofran Inj) 4 mg Q6H PRN IV NAUSEA/VOMITING Last administered on 08/11/18at 10:35; Admin Dose 4 MG; Start 08/11/18 at 09:00 Hydromorphone HCl (Dilaudid) 0.4 mg PACU PRN IV MOD PAIN 4-6 Last administered on 08/11/18at 09:35; Admin Dose 0.2 MG; Start 08/11/18 at 09:00; Stop 08/11/18 at 14:00 Ondansetron HCl (Zofran Inj) 4 mg PACU ORDER PRN IV NAUSEA/VOMITING; Start 08/11/18 at 09:00; Stop 08/11/18 at 14:00 VONDA MEADOWS NP August 11, 2018 13:33
[2018-08-12] MEDS: PIPER-TAZO 3.375 GM IV (PMX) 100 ML IVPB SCH ×4 (00:59→17:29)
[2018-08-12] MEDS ORDERED: HYDROmorphONE 1 MG/ML SYG IV ONE (01:00)
[2018-08-12 01:57] VITALS: BP 106/57; PULSE 93; RESP 18
[2018-08-12 07:18] VITALS: BP 118/84; PULSE 99; RESP 16
[2018-08-12] MEDS: morphine 2 MG INJ IV PRN (08:44)
--- NOTE | 2018-08-12 11:16 | QN ---
Documentation Comment Postoperative day #1 Markedly symptomatically improved Leukocytosis resolved LFTs are normal PAMELA drainage serosanguineous None: PAMELA drain removed. Patient is cleared for discharge home today with p.o. pain medications and antibiotics. I will remove the skin maria in 1 week LO LAURENT MD August 12, 2018 11:16
[2018-08-12] MEDS ORDERED: AMOX1TAB10 PO (13:36)
[2018-08-12] MEDS ORDERED: HYDR-4011 PO (13:36)
[2018-08-12] MEDS ORDERED: DOCU-144 PO (13:36)
[2018-08-12] MEDS ORDERED: Work Note (13:36)
--- NOTE | 2018-08-12 13:37 | PDOCDIS ---
Discharge Instructions CONDITION [id number] Patient Condition: [id number] Stable HOME CARE INSTRUCTIONS: [id number] Diet Instructions: [id number] Low Fat /Cholesterol FOLLOW UP/APPOINTMENTS Follow-up Plan Jean Carlos Walton MD Specialty: General Surgery Office Address [address] [place] [address] Office OTHER ORDERS: Other Orders: 1. Take a regular, preferably low-cholesterol diet as tolerated. 2. Keep incisions clean and dry. May shower. Avoid tub baths and swimming for 2 weeks. Use mild soap and pat dry the incisions. 3. Take medications as needed for pain. 4. Call the surgeon or go to the nearest ER if you have severe abdominal pain despite pain medications. 5. Call the surgeon or go to the nearest ER if you notice any bleeding or secretions coming out of the incision sites. Also call the surgeon if you notice any blood in stool, if you have persistent fevers, or any other unusual signs or symptoms. 6. Follow-up with the surgeon [Dr. Walton] in 7 days for incision check. 7. Avoid heavy lifting [more than 10-15 pounds] for 4 weeks. VONDA MEADOWS NP August 12, 2018 13:37
[2018-08-12 14:03] VITALS: BP 127/84; PULSE 94; RESP 16
--- NOTE | 2018-08-12 14:21 | DS ---
Date/Time of Note Date/Time of Note DATE: 08/12/18 TIME: 14:20 Discharge Summary Admission/Discharge Info Admit Date/Time August 10, 2018 at 09:44 Discharge Date/Time Discharge Diagnosis 1. Acute cholecystitis. Status post laparoscopic cholecystectomy and placement of a drain on 08/11/2018. 2. Obesity. BMI 38 kg/m. 3. Prediabetes. Hemoglobin A1c 5.9. Patient Condition: Stable Consults 1. Jean Carlos Walton MD, General Surgery. Procedures Operative Report Procedure Date: August 11, 2018 Preoperative Diagnosis Acute cholecystitis Postoperative Diagnosis Acute cholecystitis Operation/Procedure Performed 1. Laparoscopic cholecystectomy 2. Placement of drain Surgeon Jean Carlos Walton MD Hx of Present Illness This is a 17-year-old female with comorbidities including cholelithiasis and obesity who presented to the emergency room with chief complaint of abdominal pain associated with multiple episodes of nausea and vomiting, who was admitted to inpatient setting for further treatment and evaluation. Hospital Course The patient was kept n.p.o. The patient was started on empiric antimicrobials including coverage for anaerobes. She was provided with adequate pain control. General surgery consult was obtained. Patient was taken to the OR on 08/11/2018 and the patient underwent a laparoscopic cholecystectomy and placement of a drain. Status post procedure, the patient was started on a clear liquid diet and the diet was advanced as tolerated to a regular consistency diet without any significant gastrointestinal symptoms. The patient was encouraged on frequent ambulation and frequent use of incentive spirometry. The patient had a drain placed because of significant cholecystitis. Therefore, the patient will be discharged home on oral antibiotics as per surgery recommendations. The patient's chronic problems include obesity. The patient has a BMI of 38. The patient was noted to have a hemoglobin A1c of 5.9. The patient was advised on low-cholesterol, low carbohydrate diet. The patient had a stable hospital course. The patient was cleared by general surgery to be discharged home. Discharge Instructions 1. Take a regular, preferably low-cholesterol diet as tolerated. 2. Keep incisions clean and dry. May shower. Avoid tub baths and swimming for 2 weeks. Use mild soap and pat dry the incisions. 3. Take medications as needed for pain. 4. Call the surgeon or go to the nearest ER if you have severe abdominal pain despite pain medications. 5. Call the surgeon or go to the nearest ER if you notice any bleeding or secretions coming out of the incision sites. Also call the surgeon if you notice any blood in stool, if you have persistent fevers, or any other unusual signs or symptoms. 6. Follow-up with the surgeon [Dr. Walton] in 7 days for incision check. 7. Avoid heavy lifting [more than 10-15 pounds] for 4 weeks. The patient verbalized understanding of her discharge instructions. At this time I would like to thank Dr. Walton for seeing the patient, doing the necessary procedures, and providing clinical recommendations. The patient was seen in collaboration with Dr. Duarte. Home Meds Active Scripts [Work Note] No Conflict Check This is to certify that the patient was admitted to [facility] from 08/10/2018 to 08/12/2018. She can return back to school on 08/20/2018 with restriction of no heavy lifting more than 15 pounds until September 08, 2018. Prov:VONDA MEADOWS NP 08/12/18 Docusate Sodium* (Colace*) 100 Mg Capsule, 100 MG PO BID, #20 CAP Prov:VONDA MEADOWS NP 08/12/18 Amoxicillin/Potassium Clav (Amox-Clav 875-125 mg Tablet) 875-125 mg Tab, 1 TAB PO BID for 7 Days, #14 TAB Prov:VONDA MEADOWS NP 08/12/18 Hydrocodone/Acetaminophen ([place] 5-325 Tablet) 1 Each Tablet, 1 EACH PO Q6H for pain, #10 TAB Prov:VONDA MEADOWS NP 08/12/18 Discontinued Scripts Ibuprofen* (Ibuprofen*) 600 Mg Tablet, 600 MG PO Q6H PRN for MODERATE PAIN LEVEL 4-6 for 1 Day, #20 TAB otc Prov:RAÚL QUINTEROS MD 09/09/17 Follow-up Plan Jean Carlos Walton MD Specialty: General Surgery Office Address [address] [place] [address] Office Primary Care Provider Not On Staff Doctor Time spent on discharge: > 30 minutes Pending Labs Laboratory Tests Test 08/12/18 06:00 White Blood Count 7.5 10^3/ul (4.8-10.8) Red Blood Count 4.05 10^6/ul (4.20-5.40) Hemoglobin 8.9 g/dl (12.0-16.0) Hematocrit 29.7 % (37.0-47.0) Mean Corpuscular Volume 73.3 fl (72.0-104.0) Mean Corpuscular Hemoglobin 22.0 pg (29.0-33.0) Mean Corpuscular Hemoglobin Concent 30.0 g/dl (32.0-37.0) Red Cell Distribution Width 15.7 % (11.5-14.5) Platelet Count 353 10^3/UL (140-415) Mean Platelet Volume 11.0 fl (7.4-10.4) Immature Granulocytes % 0.300 % (0.001-0.429) Neutrophils % 69.3 % (30.0-74.0) Lymphocytes % 21.0 % (18.0-55.0) Monocytes % 8.4 % (0.0-13.0) Eosinophils % 0.9 % (0.0-7.0) Basophils % 0.1 % (0.0-2.0) Nucleated Red Blood Cells % 0.0 /100WBC (0.0-0.0) Immature Granulocytes # 0.020 10^3/ul (0.0-0.031) Neutrophils # 5.2 10^3/ul (1.6-7.5) Lymphocytes # 1.6 10^3/ul (0.8-2.9) Monocytes # 0.6 10^3/ul (0.3-0.9) Eosinophils # 0.1 10^3/ul (0.0-0.5) Basophils # 0.0 10^3/ul (0.0-0.1) Nucleated Red Blood Cells # 0.0 10^3/ul (0.0-0.0) Sodium Level 140 mmol/L (135-144) Potassium Level 3.7 mmol/L (3.5-5.1) Chloride Level 105 mmol/L (97-110) Carbon Dioxide Level 27 mmol/L (21-31) Anion Gap 8 (5-13) Blood Urea Nitrogen 6 mg/dl (7-20) Creatinine 0.59 mg/dl (0.44-1.00) Est Glomerular Filtrat Rate mL/min > 60 mL/min (>60) Glucose Level 91 mg/dl (70-220) Calcium Level 8.8 mg/dl (8.4-10.2) Phosphorus Level 4.1 mg/dl (2.5-4.9) Magnesium Level 2.1 mg/dl (1.7-2.5) Total Bilirubin 0.8 mg/dl (0.2-1.3) Direct Bilirubin 0.00 mg/dl (0.00-0.20) Indirect Bilirubin 0.8 mg/dl (0-1.1) Aspartate Amino Transf (AST/SGOT) 44 IU/L (15-46) Alanine Aminotransferase (ALT/SGPT) 36 IU/L (13-69) Alkaline Phosphatase 104 IU/L (42-121) Total Protein 7.3 g/dl (6.1-8.1) Albumin 3.4 g/dl (3.3-4.9) Globulin 3.90 g/dl (1.3-3.2) Albumin/Globulin Ratio 0.87 VONDA MEADOWS NP August 12, 2018 14:21
== END 2018-08-12 18:15 | disposition home or self-care (01) | DRG 419 ==
LOC: FTE 07:20 → PP2 09:44
PROVIDERS: ADMIT Internal Medicine; ATTEND Internal Medicine
PROC: 0FT44ZZ Resection of Gallbladder, Percutaneous Endoscopic Approach (ICD-10-PCS; principal; 2018-08-11 07:30)
DX: K80.00 Calculus of gallbladder with acute cholecystitis without obstruction (principal); E66.9 Obesity, unspecified; F17.200 Nicotine dependence, unspecified, uncomplicated; R73.03 Prediabetes
CPT/HCPCS: 76705; 80053; 80061; 81001; 81025; 83036; 83690; 83735; 84100; 85025; 88304; J0690; J1170; J1885; J2250; J2270; J2405; J2543; J2710; J3010; J7030

== ENCOUNTER 2018-08-20 10:52 | Emergency (ER) | payer OTHER ==
[~2018-08-20] VITALS: Wt 90.0 kg
[~2018-08-20 10:52] MED LIST changes: +AMOX1TAB10 PO; +DOCU-144 PO; +HYDR-4011 PO; -IBUP-1542 PO; +Work Note
[2018-08-20 10:54] VITALS: BP 129/74; PULSE 100; RESP 20
--- NOTE | 2018-08-20 12:26 | ERD ---
ER Documentation Chief Complaint Chief Complaint HERE FOR SUTURE REMOVAL FROM GALL BLADDER SURGERY July HPI 17-year-old female presenting for staple removal after her gallbladder surgery on August 11. She has surgery with Dr. Walton but has been unsuccessful and following up in his clinic as they will never answer their phone calls or return messages. Patient denies any pain. Denies vomiting denies abdominal pain. Denies fevers. Denies medical problems. NKDA. Surgical history is cholecystectomy. Social history denies ROS All systems reviewed and are negative except as per history of present illness. Medications Home Meds Active Scripts [Work Note] No Conflict Check This is to certify that the patient was admitted to [facility] from 08/10/2018 to 08/12/2018. She can return back to school on 08/20/2018 with restriction of no heavy lifting more than 15 pounds until September 08, 2018. Prov:VONDA MEADOWS NP 08/12/18 Docusate Sodium* (Colace*) 100 Mg Capsule, 100 MG PO BID, #20 CAP Prov:VONDA MEADOWS NP 08/12/18 Amoxicillin/Potassium Clav (Amox-Clav 875-125 mg Tablet) 875-125 mg Tab, 1 TAB PO BID for 7 Days, #14 TAB Prov:VONDA MEADOWS NP 08/12/18 Hydrocodone/Acetaminophen ([place] 5-325 Tablet) 1 Each Tablet, 1 EACH PO Q6H for pain, #10 TAB Prov:VONDA MEADOWS NP 08/12/18 Allergies Allergies: Coded Allergies: No Known Allergy (Unverified , 09/07/17) VERIFIED BY RN PMhx/Soc Medical and Surgical Hx: pt denies Medical Hx History of Surgery: Yes (LAP URI) Anesthesia Reaction: No Hx Neurological Disorder: No Hx Respiratory Disorders: No Hx Cardiac Disorders: No Hx Psychiatric Problems: No Hx Miscellaneous Medical Probl: No Hx Alcohol Use: No Hx Substance Use: No Hx Tobacco Use: No FmHx Family History: No diabetes, No coronary disease, No other Physical Exam Vitals Vital Signs Date Temp Pulse Resp B/P (MAP) Pulse Ox O2 O2 Flow FiO2 Time Delivery Rate 08/20/18 97.8 100 20 129/74 99 10:54 (92) Physical Exam GENERAL: The patient is well-appearing, well-nourished, in no acute distress CHEST: Clear to auscultation bilaterally. There are no rales, wheezes or rhonchi. HEART: Regular rate and rhythm. No murmurs, clicks, rubs or gallops. SKIN: Kellie intact with no erythema or dehiscence of the wound. No purulence. ABDOMEN: Normal active bowel sounds. No distention. No organomegaly. Procedures/MDM ER course: [place] removed without complication. MDM: 17-year-old female presenting with kellie. Kellie removed without complication. I have low suspicion for postoperative abnormality or infection. Patient is told symptoms change or worsen to return immediately to the ER. All questions answered at discharge Departure Diagnosis: Primary Impression: Encounter for removal of kellie Condition: Stable Patient Instructions: Staple Removal, No Complication Referrals: [facility] YOU HAVE RECEIVED A MEDICAL SCREENING EXAM AND THE RESULTS INDICATE THAT YOU DO NOT HAVE A CONDITION THAT REQUIRES URGENT TREATMENT IN THE EMERGENCY DEPARTMENT. FURTHER EVALUATION AND TREATMENT OF YOUR CONDITION CAN WAIT UNTIL YOU ARE SEEN IN YOUR DOCTORS OFFICE WITHIN THE NEXT 1-2 DAYS. IT IS YOUR RESPONSIBILITY TO MAKE AN APPOINTMENT FOR FOLOW-UP CARE. IF YOU HAVE A PRIMARY DOCTOR --you should call your primary doctor and schedule an appointment IF YOU DO NOT HAVE A PRIMARY DOCTOR YOU CAN CALL OUR PHYSICIAN REFERRAL HOTLINE AT IF YOU CAN NOT AFFORD TO SEE A PHYSICIAN YOU CAN CHOSE FROM THE FOLLOWING [facility] [address] [facility]. [facility] [address] [facility] [address] [facility]. [facility] [address] [facility]. [facility] [address] [facility]. [facility] [address] Additional Instructions: FOLLOW UP WITH YOUR PRIMARY CARE PHYSICIAN TOMORROW.Return to this facility if you are not improving as expected. VIVIANA KING PA-C Aug 20, 2018 12:26
== END 2018-08-20 12:05 | disposition home or self-care (01) ==
LOC: FTE 10:52
DX: Z48.02 Encounter for removal of sutures (principal)
CPT/HCPCS: 99281